=== PATIENT | male | born 1950 | race Caucasian/White ===

== ENCOUNTER 2017-02-10 13:47 | Emergency (ER) | payer MEDICARE, OTHER, SELFPAY | END 2017-02-10 15:05 | disposition short-term general hospital (02) | PROVIDERS: Emergency Provider Emergency Medicine; Visit Provider Emergency Medicine | DX: S61.011A Laceration without foreign body of right thumb without damage to nail, initial encounter (principal); S66.021A Laceration of long flexor muscle, fascia and tendon of right thumb at wrist and hand level, initial encounter; W31.2XXA Contact with powered woodworking and forming machines, initial encounter; Y92.019 Unspecified place in single-family (private) house as the place of occurrence of the external cause; F17.210 Nicotine dependence, cigarettes, uncomplicated; Z88.6 Allergy status to analgesic agent; C61 Malignant neoplasm of prostate | CPT/HCPCS: 73110; 96365; 99284 ==